=== PATIENT | male | born 1965 | race African-American/Black ===

== ENCOUNTER 2016-09-21 20:25 | Emergency (ER) | payer BC ==
[~2016-09-21] VITALS: Ht 188 cm; Wt 108.9 kg
[~2016-09-21 20:25] MED LIST: IBUPROFEN600 MG ORAL
[2016-09-21] MEDS ORDERED: HYDROCHLOROTH12.5 M2 ORAL (21:23)
[2016-09-21] MEDS ORDERED: Bacitracin Oint UD TOPIC ONE (21:45)
[2016-09-21 21:55] LABS: APPEARANCE,URINE CLEAR; KETONES,URINE NEGATIVE (NEGATIVE); LEUKOCYTE ESTERASE ,URINE 3+ (NEGATIVE); NITRITE,URINE POSITIVE (NEGATIVE); PH,URINE 6.5 (4.5-8.0); PROTEIN,URINE 2+ (NEGATIVE); UROBILINOGEN,URINE NORMAL MG/DL (0.0-1.0)
[2016-09-21 22:11] LABS: RBC,URINE 0-2 /HPF (0 - 0)
[2016-09-21 22:12] LABS: BACTERIA,URINE FEW /HPF
[2016-09-22] MEDS ORDERED: KEFLEX500 MG ORAL (00:07)
[2016-09-22] MEDS ORDERED: BACITRACIN15 GM TOPIC (00:07)
[2016-09-22 00:25] VITALS: BP 154/71
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
== END 2016-09-22 00:25 | disposition home or self-care (01) ==
LOC: EMR 21:00
DX: T21.11XA Burn of first degree of chest wall, initial encounter (principal); X16.XXXA Contact with hot heating appliances, radiators and pipes, initial encounter; Y92.89 Other specified places as the place of occurrence of the external cause; N39.0 Urinary tract infection, site not specified; I10 Essential (primary) hypertension
CPT/HCPCS: 81003; 99284

== ENCOUNTER 2016-12-02 21:31 | Emergency (ER) | payer BC ==
[~2016-12-02] VITALS: Ht 188 cm; Wt 108.9 kg
[~2016-12-02 21:31] MED LIST changes: +BACITRACIN15 GM TOPIC; +HYDROCHLOROTH12.5 M2 ORAL; +KEFLEX500 MG ORAL
[2016-12-02] MEDS ORDERED: NKM (21:45)
[2016-12-02 21:50] VITALS: BP 157/94
[2016-12-02] MEDS ORDERED: IBUPROFEN600 MG ORAL (22:01)
--- NOTE | 2016-12-02 22:01 | Emergency Room Report ---
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 He presents with right groin pain. Onset today. This occur after some heavy lifting of furniture. He came in because he is wearing that he may be a hernia. Denies any other trauma. Does not fell any mass. Worse with movement. Better with rest. Denies any other complaint. Allergies: Coded Allergies: No Known Allergies (Unverified , 12/02/16) Patient History Past Medical History: see triage record, old chart reviewed Past Surgical History: other Pertinent Family History: none Social History: Denies: smoking Immunizations: other Reviewed Nursing Documentation: PMH: Agreed, PSxH: Agreed Nursing Documentation-PM Past Medical History: No Stated History Hx Hypertension: Yes Review of Systems Eye: Denies: blurred vision, eye pain ENT: Denies: ear pain, nose congestion, throat swelling Respiratory: Denies: cough, shortness of breath Cardiovascular: Denies: chest pain, palpitations Gastrointestinal: Denies: abdominal pain, diarrhea, nausea, vomiting Musculoskeletal: Denies: back pain, joint pain Skin: Denies: rash Neurological: Denies: headache, numbness Endocrine: Denies: increased thirst, increased urine Hematologic/Lymphatic: Denies: easy bruising All Other Systems: negative except mentioned in HPI Physical Exam Vital Signs Date Time Temp Pulse Resp B/P Pulse Ox O2 Delivery O2 Flow Rate FiO2 12/02/16 21:42 98.2 96 16 157/94 99 Room Air vitals with hypertension Sp02 EP Interpretation: reviewed, normal General Appearance: well appearing, no apparent distress, alert Head: normocephalic, atraumatic Eyes: bilateral eye EOMI, bilateral eye PERRL ENT: hearing grossly normal, normal pharynx Neck: full range of motion, supple, no meningismus Respiratory: chest non-tender, lungs clear, normal breath sounds Cardiovascular #1: regular rate, rhythm, no murmur Gastrointestinal: normal bowel sounds, non tender, no mass, no organomegaly, no bruit, non-distended Genitourinary: other - No palpable hernia right groin. Musculoskeletal: back normal, gait/station normal, normal range of motion Psychiatric: mood/affect normal Skin: warm/dry Medical Decision Making Diagnostic Impression: Primary Impression: Muscle strain ER Course Patient with a muscle strain. No evidence of palpable hernia. No evidence of incarceration. We'll discharge home. Last Vital Signs Date Time Temp Pulse Resp B/P Pulse Ox O2 Delivery O2 Flow Rate FiO2 12/02/16 21:50 98.2 88 16 157/94 99 Room Air Status: unchanged Disposition: HOME, SELF-CARE Condition: Stable Scripts Ibuprofen* (MOTRIN*) 600 Mg Tablet 600 MG ORAL THREE TIMES A DAY, #30 TAB 0 Refills Prov: THALIA ISSA M.D. 12/02/16 Additional Instructions: followup with your Dr. in 7 days. Return if symptom worsen. THALIA ISSA M.D. Dec 02, 2016 22:01
[2016-12-02 22:03] VITALS: BP 157/94
== END 2016-12-02 22:00 | disposition home or self-care (01) ==
LOC: EMR 22:00
DX: R10.30 Lower abdominal pain, unspecified (principal); S39.011A Strain of muscle, fascia and tendon of abdomen, initial encounter; X50.0XXA Overexertion from strenuous movement or load, initial encounter; Y92.89 Other specified places as the place of occurrence of the external cause; I10 Essential (primary) hypertension
CPT/HCPCS: 99283

== ENCOUNTER 2017-08-15 11:56 | Emergency (ER) | payer SELFPAY ==
[~2017-08-15] VITALS: Ht 188 cm; Wt 108.9 kg
[~2017-08-15 11:56] MED LIST changes: +NKM
--- NOTE | 2017-08-15 13:06 | Emergency Room Report ---
History of Present Illness General Chief Complaint: Lower Extremity Injury Present Illness HPI pt is a 51 y.o. male with hx of controlled HTN, here with 6 months of intermittent aching 4/10 right knee pain. 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 pt mentions usually Ibuprofen relieves his pain but his pain became worse since 4 days ago post lifting heavy objects. pt denies pain radiation. c/o tingling on medial side of right knee. denies numbness, decreased ROM. pt denies recent trauma and injury to the knee. denies ecchymosis , fever/chills. Allergies: Coded Allergies: No Known Allergies (Unverified , 12/02/16) Patient History Past Medical History: see triage record Pertinent Family History: none Reviewed Nursing Documentation: PMH: Agreed; PSxH: Agreed Nursing Documentation-PMH Hx Hypertension: Yes Review of Systems All Other Systems: negative except mentioned in HPI Physical Exam Vital Signs Date Time Temp Pulse Resp B/P (MAP) Pulse Ox O2 Delivery O2 Flow Rate FiO2 08/15/17 12:08 97.7 62 16 116/78 97 Room Air 97.7 Sp02 EP Interpretation: reviewed, normal General Appearance: no apparent distress, alert, GCS 15, non-toxic Head: normocephalic, atraumatic Eyes: bilateral eye normal inspection, bilateral eye PERRL Neck: full range of motion, supple/symm/no masses Respiratory: chest non-tender, lungs clear, normal breath sounds, speaking full sentences Cardiovascular #1: regular rate, rhythm, no edema, no gallop Cardiovascular #2: 2+ carotid (R), 2+ carotid (L), 2+ radial (R), 2+ radial (L) , 2+ dorsalis pedis (R), 2+ dorsalis pedis (L) Musculoskeletal: back normal, digits/nails normal, gait/station normal, normal range of motion, non-tender, no calf tenderness Neurologic: alert, oriented x3, responsive, motor strength/tone normal, sensory intact, speech normal Psychiatric: judgement/insight normal, memory normal, mood/affect normal, no suicidal/homicidal ideation Reflexes: 3+ bicep (R), 3+ bicep (L), 3+ tricep (R), 3+ tricep (L), 3+ knee (R) , 3+ knee (L) Skin: normal color, no rash, warm/dry, well hydrated Lymphatic: no adenopathy Medical Decision Making PA Attestation Dr. Jones Diagnostic Impression: Primary Impression: Knee pain Qualified Codes: M25.561 - Pain in right knee Additional Impression: Knee sprain Qualified Codes: S83.91XA - Sprain of unspecified site of right knee, initial encounter ER Course pt is a 51 y.o. male with hx of controlled HTN, here with 6 months of intermittent aching 4/10 right knee pain. 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 pt mentions usually Ibuprofen relieves his pain but his pain became worse since 4 days ago post lifting heavy objects. pt denies pain radiation. c/o tingling on medial side of right knee. denies numbness, decreased ROM. pt denies recent trauma and injury to the knee. denies ecchymosis , fever/chills. Ddx considered but are not limited to knee effusion, ligament involvement ,gout , fracture Vital signs: are WNL, pt. is afebrile H&PE are most consistent with knee sprain ORDERS: X-ray of knee ED INTERVENTIONS: None required at this time DISCHARGE: At this time pt. is stable for d/c to home. Will provide printed patient care instructions, and any necessary prescriptions. Care plan and follow up instructions have been discussed with the patient prior to discharge. Other X-Ray Diagnostic Results Other X-Ray Diagnostic Results : Indication: Pain EP Interpretation: Yes PA Xray: Interpretation reviewed, by supervising MD, and agrees with findings. Interpretation: no dislocation, no soft tissue swelling, no fractures Impression: No acute disease Electronically Signed by: radha Antunez PA-C Last Vital Signs Date Time Temp Pulse Resp B/P (MAP) Pulse Ox O2 Delivery O2 Flow Rate FiO2 08/15/17 12:08 97.7 62 16 116/78 97 Room Air 97.7 Disposition: HOME, SELF-CARE Condition: Stable Patient Instructions: Knee Sprain Additional Instructions: take rx as prescribed f/u with PCP in 2-3days MRI may be needed for ligament involvement Return to ED if pain worsen Radha Antunez Aug 15, 2017 13:06
[2017-08-15] MEDS ORDERED: NAPROXEN500 M2 ORAL (14:28)
[2017-08-15 14:35] VITALS: BP 157/88
--- NOTE | 2017-08-16 10:46 | Diagnostic Imaging Report ---
Indication: Pain Knee pain/trauma 3 views of the right knee were obtained. Findings: No acute fracture, malalignment, or joint effusion are identified. Joint space is relatively well-maintained. Marginal spurs are present. Impression: Negative for acute findings.
== END 2017-08-15 14:38 | disposition home or self-care (01) ==
LOC: EMR 13:18
DX: S83.91XA Sprain of unspecified site of right knee, initial encounter (principal); X50.0XXA Overexertion from strenuous movement or load, initial encounter; Y92.9 Unspecified place or not applicable; I10 Essential (primary) hypertension
CPT/HCPCS: 99283